=== PATIENT | female | born 1945 | race Caucasian/White ===

== ENCOUNTER 2017-09-02 09:24 | Outpatient (CLI) | payer MEDICARE, BC ==
--- NOTE | 2017-09-02 11:13 | RAD ---
CHEST TWO VIEWS: History: Pre op Comparison: 2015 FINDINGS: Evaluation of the right hemithorax is limited due to calcified breast implant. There is lung hyperinf lation. On the lateral radiograph there appears to be increased density in the lower lobes although t his is likely sequellae of normal pulmonary vasculature and relative pruning of the vasculature in th e upper lobes due to the severe emphysema. Right axillary surgical clips. IMPRESSION: Similar examination of the chest. No acute intrathoracic abnormality. No evidence for pneumonia. Find ings are similar to the 2015 examination. POS: [facility]
[2017-09-02 12:08] LABS: #Basophils 0.1 thou/uL (0.0-0.2); #Eosinphils 0.2 thou/uL (0.0-0.7); #Lymphocytes 1.6 thou/uL (1.20-3.40); #Monocytes 0.8 thou/uL (0.11-0.59); #Neutrophils 5.3 thou/uL (1.40-6.50); %Basophils 0.7 % (0.0-1.0); %Eosinophils 2.4 % (0.0-10.0); %Lymphocytes 20.5 % (21.0-51.0); %Monocytes 9.9 % (0.0-10.0); %Neutrophils 66.6 % (42.0-75.0); Hemoglobin 12.5 g/dL (12.0-16.0); Mean Corpuscular HGB CONC 32.7 g/dL (32.0-36.0); Mean Corpuscular Volume 97.9 fl (81.0-99.0); Mean Platelet Volume 6.9 fL (7.4-10.4); Platelet Count 335 thou/uL (130-400); RBC Distribution Width 12.5 % (11.5-14.5); Red Blood Cell (RBC) Count 3.91 mill/uL (4.20-5.40)
[2017-09-02 12:23] LABS: Anion Gap 13 mmol/L (10-20); BUN (Urea Nitrogen) 17 mg/dL (9.8-20.1); Calc. Creatinine Clearance 0 mL/min (70-130); Calcium 9.6 mg/dL (7.8-10.44); Carbon Dioxide 28 mmol/L (23-31); Chloride 99 mmol/L (98-107); Estimated GFR-MDRD 74; Glucose 82 mg/dL (83-110); Potassium 3.9 mmol/L (3.5-5.1); Sodium 136 mmol/L (136-145)
--- NOTE | 2017-09-10 19:32 | EKG ---
Test Reason : Blood Pressure : / mmHG Vent. Rate : 075 BPM Atrial Rate : 075 BPM P-R Int : 124 ms QRS Dur : 078 ms QT Int : 406 ms P-R-T Axes : 057 -40 055 degrees QTc Int : 453 ms Normal sinus rhythm Possible Left atrial enlargement Left axis deviation Abnormal ECG When compared with ECG of 29-JAN-2017 13:09, No significant change was found Confirmed by JENNIFER SUMNER (2) on 09/10/2017 7:31:52 PM Referred By: ARTURO Confirmed By:JENNIFER SUMNER
== END 2017-09-02 09:25 | disposition home or self-care (01) ==
LOC: LABBT 09:24
PROVIDERS: ATTEND Specialist
DX: Z01.818 Encounter for other preprocedural examination (principal); K41.00 Bilateral femoral hernia, with obstruction, without gangrene, not specified as recurrent; Z85.038 Personal history of other malignant neoplasm of large intestine
CPT/HCPCS: 71046; 80048; 85025; 93005; 93010

== ENCOUNTER 2017-09-08 07:37 | Day surgery (SDC) | payer MEDICARE, BC ==
[2017-09-02 09:52] VITALS: BMI 17.2
[2017-09-08] MEDS ORDERED: Ketorolac Tromethamine 30 MG/ML VIAL ONE ×2 (08:20→15:02)
[2017-09-08] MEDS ORDERED: Lidocaine 2% PF 5 ML VIAL ONE ×2 (09:32→09:34)
[2017-09-08] MEDS ORDERED: Bupivacaine/Epinephrine 0.25% 30 ML VIAL ONE (09:32)
[2017-09-08] MEDS ORDERED: Fentanyl 100 MCG/2 ML VIAL ONE (10:31)
[2017-09-08] MEDS ORDERED: Midazolam HCl 2 mg/2 ml Vial ONE (10:31)
[2017-09-08] MEDS ORDERED: CEFAZOLIN/Water 2 GM/20 ML SYRINGE ONE (10:41)
[2017-09-08] MEDS ORDERED: Ondansetron HCl/PF 4 MG/2 ML Vial ONE (15:02)
[2017-09-08] MEDS ORDERED: Lidocaine 1% PF 5 ML VIAL ONE (15:02)
[2017-09-08] MEDS ORDERED: PHENYLEPHRINE-NS 100 MCG/ML 10 ML SYRINGE ONE (15:02)
[2017-09-08] MEDS ORDERED: Propofol 200 MG/20 ML VIAL ONE (15:02)
--- NOTE | 2017-09-09 11:25 | OP ---
DATE OF PROCEDURE: 09/08/2017 PREOPERATIVE DIAGNOSIS: Recurrent right femoral hernia, new left femoral hernia. POSTOPERATIVE DIAGNOSIS: Recurrent right femoral hernia, new left femoral hernia. OPERATION PERFORMED: Repair of bilateral femoral hernias (recurrent on the right) with perfect mesh plug. SURGEON: Fahad Obando M.D. ANESTHESIA: General with laryngeal mask airway. INDICATIONS: The patient is a 72-year-old white female. She has undergone previous right femoral he rnia repair with mesh. She presents at this time with obvious recurrence. She additionally has smal ler, but visible and palpable femoral hernia on the left. DESCRIPTION OF OPERATION: Informed consent was obtained. The patient taken to the operating room wh ere general anesthesia was obtained with the patient in supine position. Bilateral inguinal areas wa s trimmed of hair, prepped with ChloraPrep, and draped in sterile fashion. Local anesthetic was infi ltrated in the areas that were marked preoperatively. Operation was performed first on the right. I ncision was created over the hernia. Dissection was carried through skin and subcutaneous tissue. T he hernia was quickly identified and dissected back to its opening at the femoral canal. With carefu l dissection, I was able to identify the shelving edge of the inguinal ligament on the anterior aspec t of the Ender's ligament on the posterior aspect and then the mesh was in this area as well. The l acunar ligament was identified medially and laterally easily visible femoral vein. After full dissection, the contents were easily able to be reduced. The apex of the hernia sac secur ed to the apex of a medium PerFix mesh patch and the complex was inverted into the preperitoneal spac e. The mesh was secured to surrounding structures within an anterior, posterior, medial suture of 2- 0 Vicryl. On the lateral aspect, an imbricating suture was placed incorporating to the shelving edge of the inguinal ligament, the lateral aspect of the mesh plug, and Ender's ligament posteriorly. T his closed off the size of the canal and incorporated the mesh in this area as well. Hemostasis was meticulous. Additional local anesthetic was infiltrated. The wound was closed in lay ers with 3-0 and 4-0 Monocryl suture. Dermabond was placed externally. Attention was turned to the left side. An incision was created in a similar location after local ane sthetic was infiltrated. Dissection was carried through skin and subcutaneous tissue. The initial c omplex of tissue that was identified appeared to have likely been lymphatics that retract lateral to the typical femoral canal. Since these have been dissected, ligated these proximally and passed thes e off the field. There was nothing pathologic about it and it was decided and submitted as a specime n. I then, in the medial aspect, identified the hernia sac. This was also dissected carefully back to its opening at the femoral canal. With meticulous dissection, I was again able to identify the an atomic boundaries of the femoral canal and the contents were easily able to be reduced in the preperi toneal space. A medium PerFix plug was obtained and secured to the apex of the hernia contents. The complex was re duced and the plug was secured in place with 4 interrupted sutures of 2-0 Vicryl as it had been on e right. Additional local anesthetic was infiltrated. The wound was closed using 3-0 and 4-0 Monocr yl and Dermabond was placed externally. There were no complications. The patient tolerated the proc edure well and was taken to recovery in stable condition.
== END 2017-09-08 14:20 | disposition home or self-care (01) ==
LOC: SDC 07:37
PROVIDERS: ATTEND Specialist
PROC: 0YU70JZ Supplement Right Femoral Region with Synthetic Substitute, Open Approach (ICD-10-PCS; principal; 2017-09-08)
PROC: 0YU80JZ Supplement Left Femoral Region with Synthetic Substitute, Open Approach (ICD-10-PCS; 2017-09-08)
DX: K41.91 Unilateral femoral hernia, without obstruction or gangrene, recurrent (principal); K41.90 Unilateral femoral hernia, without obstruction or gangrene, not specified as recurrent; Z88.2 Allergy status to sulfonamides; Z88.8 Allergy status to other drugs, medicaments and biological substances; Z88.1 Allergy status to other antibiotic agents; Z90.49 Acquired absence of other specified parts of digestive tract; Z90.11 Acquired absence of right breast and nipple; Z98.890 Other specified postprocedural states
CPT/HCPCS: C1781; J0131; J1885; J2001; J2250; J2405; J2704; J3010

== ENCOUNTER 2018-02-15 20:53 | Emergency (ER) | payer MEDICARE, BC, OTHER ==
[~2018-02-15 20:53] MED LIST: ISOVUE-370 76%-LOCM 1 ML ONE
[2018-02-15 21:34] LABS: #Basophils 0.1 thou/uL (0.0-0.2); #Eosinphils 0.1 thou/uL (0.0-0.7); #Lymphocytes 1.5 thou/uL (1.20-3.40); #Monocytes 0.9 thou/uL (0.11-0.59); #Neutrophils 9.1 thou/uL (1.40-6.50); %Basophils 0.7 % (0.0-1.0); %Eosinophils 1.2 % (0.0-10.0); %Lymphocytes 12.9 % (21.0-51.0); %Monocytes 7.7 % (0.0-10.0); %Neutrophils 77.5 % (42.0-75.0); Hemoglobin 11.6 g/dL (12.0-16.0); Mean Corpuscular HGB CONC 33.9 g/dL (32.0-36.0); Mean Corpuscular Hemoglobin 31.4 pg (27.0-31.0); Mean Corpuscular Volume 92.5 fl (81.0-99.0); Mean Platelet Volume 6.2 fL (7.4-10.4); Platelet Count 305 thou/uL (130-400); RBC Distribution Width 12.3 % (11.5-14.5); Red Blood Cell (RBC) Count 3.69 mill/uL (4.20-5.40); White Blood Cell (WBC) Count 11.7 thou/uL (4.8-10.8)
[2018-02-15 21:43] LABS: INR-International Normal Ratio 1.1; PTT 29.7 SEC (22.9-36.1); Prothrombin Time 14.2 SEC (12.0-14.7)
[2018-02-15 21:44] LABS: D-Dimer Test 1.08 *mcg/mL (0.27-0.43)
[2018-02-15 21:56] LABS: ALT (SGPT) 12 U/L (8-55); AST (SGOT) 17 U/L (5-34); Albumin 3.6 g/dL (3.4-4.8); Alkaline Phosphatase 85 U/L (40-150); Anion Gap 15 mmol/L (10-20); BUN (Urea Nitrogen) 25 mg/dL (9.8-20.1); Bilirubin, Total 0.4 mg/dL (0.2-1.2); Calc. Creatinine Clearance 0 mL/min (70-130); Calcium 9.3 mg/dL (7.8-10.44); Carbon Dioxide 24 mmol/L (23-31); Chloride 98 mmol/L (98-107); Estimated GFR-MDRD 68; Globulin 3.7 g/dL (2.4-3.5); Glucose 140 mg/dL (83-110); Lipase 14 U/L (8-78); Magnesium 1.8 mg/dL (1.6-2.6); Potassium 3.6 mmol/L (3.5-5.1); Protein, Total 7.3 g/dL (6.0-8.3); Sodium 133 mmol/L (136-145)
[2018-02-15 22:01] LABS: CKMB 1.4 ng/mL (0-6.6); Troponin I Less than 0.010 ng/mL (< 0.028)
--- NOTE | 2018-02-15 22:14 | RAD ---
RADIOGRAPH CHEST 1 VIEW: Date: 02/15/2018 Time: 9:28 p.m. HISTORY: A 72-year-old female with chest pain and hemoptysis. COMPARISON: Two view study of 01/04/2018. FINDINGS: Again noted is the hyperinflation, consistent with COPD. No cardiomegaly. Partial calcification of a right breast implant makes it difficult to assess the right mid and lower lung zones. Prominent in terstitial markings bilaterally are probably chronic. The irregular, branching pulmonary densities a t the left lung base appear worse on the current study compared to the previous. Multiple surgical c lips at the right axilla. No consolidation or pneumothorax. IMPRESSION: 1. Questionable left basilar infiltrate. 2. Status post right mastectomy and right axillary lymph node dissection. 3. Emphysema. KRISHAN [] POS: [facility]
[2018-02-15 22:38] LABS: Bilirubin Negative (Negative); Blood, Urine Small (Negative); Clarity CLEAR (Clear); Glucose, Urine (Dipstick) Negative (Negative); Leukocyte Small (Negative); Nitrite Positive (Negative); Protein, Urine (Dipstick) Negative (Neg-Trace)
[2018-02-15 22:39] LABS: Bacteria/HPF 4+ HPF (None Seen); Hyaline Casts/LPF 0-3 HYALINE CAST LPF (0-3 Hyaline); RBC/HPF 0-3 HPF (0-3); Squamous Epithelial 0-3 HPF (0-3)
--- NOTE | 2018-02-15 23:43 | CT ---
CTA THORAX WITH CONTRAST: (Computed Tomographic Angiography, chest(noncoronary) with contrast material, and image post processi ng) (PE protocol) DATE: 02/15/2018 TIME: 10:12 p.m. HISTORY: A 72-year-old female with hemoptysis and dyspnea. TECHNIQUE: IV injection of iodinated contrast: Isovue. Scan acquisition timing attempted to coincide with iodinated contrast bolus reaching maximal density in pulmonary arteries. 3D MIP reconstructions. FINDINGS: No pulmonary thromboembolism is identified. No thoracic aortic aneurysm or dissection. There is per ibronchial thickening involving all the branches of the left lower lobe bronchus. More peripherally, this is associated with bronchiectasis of the peripheral branches of the left lower lobe bronchus, a nd some of these peripheral branches, especially in the posterior basilar segment and the medial and lateral basilar segments, have occluded lumens, filled with soft tissue density. There is extensive, moderate tree-in-bud nodularity of the bilateral lower lobe pulmonary parenchyma. There is bronchie ctasis associated with peribronchial thickening and pulmonary scar, involving the anterior segment of the right upper lobe, contiguous with pleural thickening involving the anterolateral pleura. There is also biapical pleural thickening. No cardiomegaly, pleural effusion, or pericardial effusion. Bi lateral breast implants with calcified rims, especially the right. Trachea and right and left mainst em bronchi are patent and clear. Nonspecific mildly enlarged mediastinal and hilar lymph nodes bilat erally. Emphysematous changes of the lungs bilaterally. IMPRESSION: 1. No evidence of pulmonary thromboembolism. 2. Occlusion (mucoid impaction) of many of the left lower lobe bronchus branches, plus expansion and bronchiectasis. One possible etiology is allergic bronchopulmonary aspergillosis (ABPA). 3. Tree-in-bud pattern throughout the basilar segments of the bilateral lower lobes. This is nonspe cific, but one possibility is peribronchiolar pulmonary infection, including indolent infections, suc h as with atypical mycobacteria. 4. Prominent pulmonary and adjacent pleural scarring involving the anterior segment of the right upp er lobe. 5. Emphysema. paige[] POS: [facility]
== END 2018-02-16 01:08 | disposition home or self-care (01) ==
LOC: ERS 20:53
DX: J47.9 Bronchiectasis, uncomplicated (principal); J42 Unspecified chronic bronchitis; N39.0 Urinary tract infection, site not specified; Z85.038 Personal history of other malignant neoplasm of large intestine; Z85.3 Personal history of malignant neoplasm of breast
CPT/HCPCS: 36415; 71045; 71275; 80053; 81003; 81015; 82553; 83605; 83690; 83735; 83880; 84443; 84484; 85025; 85379; 85610; 85730; 86850; 86900; 86901

== ENCOUNTER 2018-02-16 10:17 | Emergency (ER) | payer MEDICARE, BC, OTHER | END 2018-02-16 11:19 | disposition home or self-care (01) | LOC: ERS 10:17 | DX: S50.12XA Contusion of left forearm, initial encounter (principal); X58.XXXA Exposure to other specified factors, initial encounter | CPT/HCPCS: 99283 ==

== ENCOUNTER 2018-04-30 12:20 | Outpatient (CLI) | payer MEDICARE, BC, OTHER ==
--- NOTE | 2018-04-30 15:52 | MRI ---
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 COMPARISON: CT brain 05/11/17. FINDINGS: There is no significant increase in the size of the left subdural hematoma. There is less than 3 mm m idline shift, decreased from 4 mm on the prior examination. On the diffusion weighted images there are no abnormal areas of diffusion restriction to suggest an a cute infarction. Mild atrophy. Mild chronic microangiopathic changes. No abnormal enhancing mass. Chronic left dural enhancement is present likely from irritation of the s ubdural hematoma. IMPRESSION: 1. No significant change in the chronic left subdural hematoma. 2. No acute intracranial abnormality. POS: [facility]
== END 2018-04-30 12:21 | disposition home or self-care (01) ==
LOC: SCSMRI 12:20
PROVIDERS: ATTEND Family Medicine
DX: I62.03 Nontraumatic chronic subdural hemorrhage (principal)
CPT/HCPCS: 70553

== ENCOUNTER 2018-06-01 14:46 | Outpatient (CLI) | payer MEDICARE, BC, OTHER ==
--- NOTE | 2018-06-01 17:26 | RAD ---
TWO VIEWS CHEST 06/01/18 COMPARISON: 01/30/16, 02/15/18. HISTORY: Dyspnea. Enlarged cardiac silhouette. Lungs are hyperinflated. Chronic changes of the lung parenchyma. Multipl e punctate densities project over the left and right hemithorax likely due to patient's shirt. Chroni c lung parenchymal changes are identified. There is stable hyperinflation. There is no significant pn eumothorax or pleural effusion. There is stable bilateral apical pleural thickening. Stable right mas tectomy and right axillary dissection changes. IMPRESSION: Stable emphysema and fibrotic changes. POS: [facility]
== END 2018-06-01 14:47 | disposition home or self-care (01) ==
LOC: RAD 14:46
PROVIDERS: ATTEND Internal Medicine Pulmonary Disease
DX: R06.00 Dyspnea, unspecified (principal); J43.9 Emphysema, unspecified
CPT/HCPCS: 71046

== ENCOUNTER 2018-06-01 19:30 | Outpatient (CLI) | payer MEDICARE, BC, OTHER | END 2018-06-01 19:31 | disposition home or self-care (01) | LOC: SLEEPLAB 19:30 | PROVIDERS: ATTEND Internal Medicine Pulmonary Disease | DX: G47.33 Obstructive sleep apnea (adult) (pediatric) (principal) | CPT/HCPCS: 95811 ==

== ENCOUNTER 2018-06-25 08:40 | Outpatient (CLI) | payer MEDICARE, BC, OTHER ==
[2018-06-25] MEDS ORDERED: Iopamidol 370 76% 100 ML VIAL ONE (09:00)
--- NOTE | 2018-06-25 15:29 | CT ---
CT ABDOMEN AND PELVIS WITH CONTRAST: 06/25/18 COMPARISON: 01/09/17 HISTORY: Colon cancer history. Weight loss and inability to gain weight. TECHNIQUE: Multiple contiguous axial images were obtained in a CT of the abdomen and pelvis with contrast. PO co ntrast is administered. Coronal reformats were performed. FINDINGS: The liver, gallbladder, right kidney, adrenal glands, spleen, and pancreas are unremarkable. There is a 1.0 cm hypodensity in the left kidney which likely represents a cyst. The large and small bowel are unremarkable. No free air, free fluid, or stranding changes are seen in the abdomen or pelvis. No abdominal or pelvic lymphadenopathy are appreciated. Patient is status post hysterectomy. Degenerative changes are seen in the spine. No suspicious osseous lesion identified. The patient has a calcified right breast implant. IMPRESSION: 1. No evidence of acute intra-abdominal/pelvic abnormality. 2. Left renal cyst. POS: [facility]
== END 2018-06-25 08:41 | disposition home or self-care (01) ==
LOC: SCSCT 08:40
PROVIDERS: ATTEND Internal Medicine Gastroenterology
DX: R63.4 Abnormal weight loss (principal); R68.81 Early satiety; R63.0 Anorexia; N28.1 Cyst of kidney, acquired
CPT/HCPCS: 74177; 82565

== ENCOUNTER 2019-07-19 13:48 | Outpatient (CLI) | payer MEDICARE, BC, OTHER ==
--- NOTE | 2019-07-19 14:19 | ULT ---
Ultrasound right neck: DATE: 07/19/2019 HISTORY: 74-year-old female with palpable lump in right neck. FINDINGS: Focused ultrasound of the palpable lump demonstrates a round, well-circumscribed, 0.4 x 0.3 x 0.4 cm hypoechoic mass. There is a central tiny focus of blood flow, indicating that this is not a cyst. IMPRESSION: The palpable lump corresponds to a tiny round hypoechoic nodule probably representing a lymph node. I t is abnormally round in shape, but is otherwise nonspecific.
== END 2019-07-19 13:49 | disposition home or self-care (01) ==
LOC: SCSULT 13:48
PROVIDERS: ATTEND Family Medicine
DX: R22.1 Localized swelling, mass and lump, neck (principal)
CPT/HCPCS: 76536

== ENCOUNTER 2019-11-15 09:09 | Outpatient (CLI) | payer MEDICARE, BC, OTHER ==
--- NOTE | 2019-11-15 09:44 | BD ---
BONE DENSITOMETRY USING DEXA: HISTORY: Osteoporosis. FINDINGS: Lumbar Spine: BMD (g/cm2) L1 0.610 T-Score: -3.5 Z-Score: -1.3 L2 0.748 T-Score: -2.5 Z-Score: -0.2 L3 0.646 T-Score: -4.0 Z-Score: -1.5 L4 0.590 T-Score: -4.3 Z-Score: -1.7 L1-L4 0.640 T-Score: -3.7 Z-Score: -1.3 Femoral Neck: 0.544 T-Score: -2.8 Z-Score: -0.7 Total Femur: 0.651 T-Score: -2.4 Z-Score: -0.6 There has been interval reduction of 9.5% in the BMD of the lumbar spine and a reduction of 11.1% in the BMD of the proximal femur since 02/06/2016. Impression: Osteoporosis. POS: [facility]
== END 2019-11-15 09:10 | disposition home or self-care (01) ==
LOC: BICMAMMO 09:09
PROVIDERS: ATTEND Family Medicine
DX: M81.0 Age-related osteoporosis without current pathological fracture (principal)
CPT/HCPCS: 77080

== ENCOUNTER 2021-02-03 01:41 | Inpatient (IN) | payer OTHER, MEDICARE, BC ==
[2021-02-03 02:33] LABS: #Basophils 0.1 thou/uL (0.0-0.2); #Eosinphils 0.2 thou/uL (0.0-0.7); #Lymphocytes 1.4 thou/uL (1.20-3.40); #Monocytes 0.6 thou/uL (0.11-0.59); #Neutrophils 6.5 thou/uL (1.40-6.50); %Basophils 0.8 % (0.0-1.0); %Eosinophils 1.9 % (0.0-10.0); %Lymphocytes 16.1 % (21.0-51.0); %Monocytes 7.2 % (0.0-10.0); Hemoglobin 11.4 g/dL (12.0-16.0); Mean Corpuscular HGB CONC 34.4 g/dL (32.0-36.0); Mean Corpuscular Hemoglobin 31.9 pg (27.0-31.0); Mean Corpuscular Volume 92.6 fL (78.0-98.0); Mean Platelet Volume 7.2 fL (7.4-10.4); Platelet Count 288 thou/uL (130-400); RBC Distribution Width 12.5 % (11.5-14.5); Red Blood Cell (RBC) Count 3.56 mill/uL (4.20-5.40); White Blood Cell (WBC) Count 8.8 thou/uL (4.8-10.8)
[2021-02-03 02:47] LABS: PTT 29.2 sec (22.9-36.1); Prothrombin Time 13.3 sec (12.0-14.7)
[2021-02-03 02:54] LABS: ALT (SGPT) 13 U/L (8-55); AST (SGOT) 18 U/L (5-34); Albumin 3.4 g/dL (3.4-4.8); Alkaline Phosphatase 88 U/L (40-110); Anion Gap 14 mmol/L (10-20); BUN (Urea Nitrogen) 19 mg/dL (9.8-20.1); Bilirubin, Total 0.3 mg/dL (0.2-1.2); Calc. Creatinine Clearance 0 mL/min (70-130); Calcium 9.1 mg/dL (7.8-10.44); Carbon Dioxide 24 mmol/L (23-31); Chloride 101 mmol/L (98-107); Globulin 3.6 g/dL (2.4-3.5); Glucose 107 mg/dL (83-110); Potassium 3.7 mmol/L (3.5-5.1); Sodium 135 mmol/L (136-145)
[2021-02-03] MEDS ORDERED: Dextrose 5% in Water 1,000 ML IV PRN (03:56)
[2021-02-03] MEDS ORDERED: Dextrose 50% Abboject 50 ML SYRINGE SLOW IVP PRN (03:56)
[2021-02-03] MEDS: Acetaminophen 325 MG TAB PO SCH ×4 (06:04→20:57)
[2021-02-03] MEDS: Ibuprofen 200 MG TAB PO SCH ×3 (06:04→20:58)
[2021-02-03] MEDS: traMADol HCl 50 MG TAB PO SCH ×4 (06:05→22:43)
[2021-02-03 06:21] LABS: SARS-CoV-2 NAA Rapid Test Not Detected (NotDetected)
[2021-02-03] MEDS ORDERED: CEFAZOLIN 2 GM in Premix Bag 1 BAG IVPB SCH (07:15)
[2021-02-03 07:37] VITALS: BMI 18.2
[2021-02-03] MEDS: Famotidine 20 MG TAB PO SCH ×2 (09:07→20:58)
[2021-02-03] MEDS ORDERED: Fentanyl 100 MCG/2 ML VIAL ONE ×2 (10:11→13:07)
[2021-02-03] MEDS ORDERED: Famotidine/PF 20 mg/2ml Vial ONE (10:11)
[2021-02-03] MEDS ORDERED: PROPOFOL 200 MG/20 ML VIAL ONE (10:52)
[2021-02-03] MEDS ORDERED: PHENYLEPHRINE-NS 100 MCG/ML 10 ML SYRINGE ONE (10:52)
[2021-02-03] MEDS ORDERED: Lidocaine 1% PF 5 ML VIAL ONE (10:52)
[2021-02-03] MEDS ORDERED: Ondansetron PF 4 MG/2 ML Vial ONE (10:52)
[2021-02-03] MEDS ORDERED: Rocuronium Bromide 10 MG/ML (10ML VIAL) ONE (10:52)
[2021-02-03] MEDS ORDERED: ePHEDrine Sulfate 50 MG/10 ML VIAL ONE ×2 (10:52→11:40)
[2021-02-03] MEDS ORDERED: SUGAMMADEX SODIUM 200 MG/2 ML VIAL ONE (11:23)
[2021-02-03] MEDS ORDERED: Promethazine HCl 25 MG/ML VIAL SLOW IVP PRN (12:15)
[2021-02-03] MEDS ORDERED: Promethazine HCl 25 MG/ML VIAL IM PRN (12:15)
[2021-02-03] MEDS ORDERED: Ondansetron HCl/PF 4 MG/2 ML Vial IVP PRN (12:15)
[2021-02-03] MEDS: Mometasone 200 MCG/Formoterol 5 MCG 120 PUFF INHALER INH SCH ×2 (13:42→18:42)
[2021-02-03] MEDS: CEFAZOLIN 2 GM in Premix Bag 1 BAG IVPB SCH (17:47)
[2021-02-03] MEDS: Aspirin 81 mg Enteric Coated Tablet PO SCH (20:59)
[2021-02-03] MEDS: Trihexyphenidyl 2 MG TAB PO SCH (20:59)
[2021-02-03] MEDS: traMADol HCl 50 MG TAB PO PRN (22:42)
[2021-02-04] MEDS: CEFAZOLIN 2 GM in Premix Bag 1 BAG IVPB SCH ×2 (02:07→10:19)
[2021-02-04] MEDS: traMADol HCl 50 MG TAB PO SCH ×4 (03:57→21:59)
[2021-02-04] MEDS: Ibuprofen 200 MG TAB PO SCH (03:58)
[2021-02-04] MEDS: traMADol HCl 50 MG TAB PO PRN (03:58)
[2021-02-04] MEDS: Acetaminophen 325 MG TAB PO SCH ×2 (04:35→10:19)
[2021-02-04 05:38] LABS: #Basophils 0.1 thou/uL (0.0-0.2); #Eosinphils 0.3 thou/uL (0.0-0.7); #Lymphocytes 1.1 thou/uL (1.20-3.40); #Monocytes 0.9 thou/uL (0.11-0.59); #Neutrophils 9.9 thou/uL (1.40-6.50); %Basophils 0.7 % (0.0-1.0); %Eosinophils 2.1 % (0.0-10.0); %Monocytes 7.1 % (0.0-10.0); %Neutrophils 81.1 % (42.0-75.0); Hemoglobin 10.5 g/dL (12.0-16.0); Mean Corpuscular HGB CONC 33.7 g/dL (32.0-36.0); Mean Corpuscular Hemoglobin 31.8 pg (27.0-31.0); Mean Corpuscular Volume 94.3 fL (78.0-98.0); Mean Platelet Volume 7.7 fL (7.4-10.4); Platelet Count 271 thou/uL (130-400); RBC Distribution Width 12.6 % (11.5-14.5); Red Blood Cell (RBC) Count 3.32 mill/uL (4.20-5.40); White Blood Cell (WBC) Count 12.3 thou/uL (4.8-10.8)
[2021-02-04 06:02] LABS: Anion Gap 10 mmol/L (10-20); BUN (Urea Nitrogen) 19 mg/dL (9.8-20.1); Calc. Creatinine Clearance 44 mL/min (70-130); Calcium 8.4 mg/dL (7.8-10.44); Carbon Dioxide 29 mmol/L (23-31); Chloride 97 mmol/L (98-107); Glucose 130 mg/dL (83-110); Magnesium 1.7 mg/dL (1.6-2.6); Phosphorus 3.1 mg/dL (2.3-4.7); Potassium 4.1 mmol/L (3.5-5.1); Sodium 132 mmol/L (136-145)
[2021-02-04] MEDS: Mometasone 200 MCG/Formoterol 5 MCG 120 PUFF INHALER INH SCH ×2 (07:48→18:35)
[2021-02-04] MEDS: Senokot S 8.6-50 MG TAB PO SCH ×2 (08:47→21:13)
[2021-02-04] MEDS: Trihexyphenidyl 2 MG TAB PO SCH ×3 (08:47→21:15)
[2021-02-04] MEDS: Aspirin 81 mg Enteric Coated Tablet PO SCH ×2 (08:47→21:14)
[2021-02-04] MEDS: Famotidine 20 MG TAB PO SCH (08:47)
[2021-02-04] MEDS: guaiFENesin ER 600 MG TAB PO SCH (08:49)
[2021-02-04] MEDS: Ondansetron PF 4 MG/2 ML Vial IVP PRN ×2 (08:53→15:19)
[2021-02-04] MEDS ORDERED: Gabapentin 100 MG CAP PO SCH (12:00)
[2021-02-04] MEDS ORDERED: Magnesium Sulfate 3 GM in Sodium Chloride 0.9% 100 ML IV SCH (14:30)
[2021-02-04] MEDS ORDERED: Magnesium 2 GM/50 ML 2 GM in Premix Bag 1 BAG IVPB SCH (14:45)
[2021-02-04] MEDS ORDERED: Gabapentin 300 MG CAP PO SCH (15:00)
[2021-02-04] MEDS: Gabapentin 100 MG CAP PO SCH ×2 (15:44→21:14)
[2021-02-04] MEDS: Acetaminophen 500 MG TAB PO SCH ×2 (15:45→21:14)
[2021-02-04] MEDS: Ferrous Sulfate 325 MG TAB PO SCH (17:11)
[2021-02-04] MEDS: Ascorbic Acid 500 mg Chewable Tablet PO SCH (21:13)
[2021-02-05] MEDS: Senokot S 8.6-50 MG TAB PO SCH ×3 (00:31→08:44)
[2021-02-05 04:00] VITALS: TEMP 98.2
[2021-02-05] MEDS: Acetaminophen 500 MG TAB PO SCH ×2 (04:38→10:49)
[2021-02-05] MEDS: traMADol HCl 50 MG TAB PO SCH ×2 (04:39→09:56)
[2021-02-05] MEDS: Mometasone 200 MCG/Formoterol 5 MCG 120 PUFF INHALER INH SCH (08:12)
[2021-02-05] MEDS: guaiFENesin ER 600 MG TAB PO SCH (08:42)
[2021-02-05] MEDS: Trihexyphenidyl 2 MG TAB PO SCH (08:43)
[2021-02-05] MEDS: Ferrous Sulfate 325 MG TAB PO SCH (08:43)
[2021-02-05] MEDS: Gabapentin 100 MG CAP PO SCH (08:43)
[2021-02-05] MEDS: Ascorbic Acid 500 mg Chewable Tablet PO SCH (08:43)
[2021-02-05] MEDS: Aspirin 81 mg Enteric Coated Tablet PO SCH (08:43)
[2021-02-05] MEDS ORDERED: Polyethylene Glycol 3350 17 GM Packet PO SCH (09:00)
[2021-02-05] MEDS ORDERED: Acetaminophen/Codeine 30-300mg Tablet PO PRN (09:37)
[2021-02-05 11:35] VITALS: BP 111/61
== END 2021-02-05 14:10 | DRG 522 ==
LOC: ERS 01:41 → SURG B 02:37
PROVIDERS: ADMIT Surgery; ATTEND Surgery
PROC: 0SRR0JA Replacement of Right Hip Joint, Femoral Surface with Synthetic Substitute, Uncemented, Open Approach (ICD-10-PCS; principal; 2021-02-03)
DX: S72.001A Fracture of unspecified part of neck of right femur, initial encounter for closed fracture (principal); W01.0XXA Fall on same level from slipping, tripping and stumbling without subsequent striking against object, initial encounter; Z20.822 Contact with and (suspected) exposure to COVID-19; G24.3 Spasmodic torticollis; G47.33 Obstructive sleep apnea (adult) (pediatric); J44.9 Chronic obstructive pulmonary disease, unspecified; Z88.2 Allergy status to sulfonamides; Z88.8 Allergy status to other drugs, medicaments and biological substances; Z79.51 Long term (current) use of inhaled steroids; Z90.49 Acquired absence of other specified parts of digestive tract; Z90.710 Acquired absence of both cervix and uterus; Z85.3 Personal history of malignant neoplasm of breast; Z85.038 Personal history of other malignant neoplasm of large intestine
CPT/HCPCS: 36415; 36416; 71045; 72170; 80048; 80053; 82533; 83735; 84100; 85025; 85610; 85730; 93005; C1776; J0690; J2405; J2704; J3010; J3475; S0028; U0002; U0005

== ENCOUNTER 2021-04-16 14:04 | Outpatient (CLI) | payer MEDICARE, OTHER | END 2021-04-16 14:05 | disposition home or self-care (01) | LOC: BICMAMMO 14:04 | PROVIDERS: ATTEND Family Medicine | DX: M81.0 Age-related osteoporosis without current pathological fracture (principal) | CPT/HCPCS: 77080 ==

== ENCOUNTER 2021-12-27 10:19 | Outpatient (CLI) | payer MEDICARE, OTHER | END 2021-12-27 10:20 | disposition home or self-care (01) | LOC: TBSIIMAG 10:19 | PROVIDERS: ATTEND Surgery | DX: M47.26 Other spondylosis with radiculopathy, lumbar region (principal); M51.16 Intervertebral disc disorders with radiculopathy, lumbar region; M41.9 Scoliosis, unspecified | CPT/HCPCS: 72100; 72148 ==

== ENCOUNTER 2022-07-09 13:23 | Outpatient (CLI) | payer MEDICARE, OTHER | END 2022-07-09 13:24 | disposition home or self-care (01) | LOC: RAD 13:23 | PROVIDERS: ATTEND Internal Medicine Critical Care Medicine | DX: R06.00 Dyspnea, unspecified (principal); R91.8 Other nonspecific abnormal finding of lung field | CPT/HCPCS: 71046 ==

== ENCOUNTER 2022-09-05 11:30 | Outpatient (CLI) | payer MEDICARE, OTHER | END 2022-09-05 11:31 | disposition home or self-care (01) | LOC: SCSMRI 11:30 | PROVIDERS: ATTEND Psychiatry & Neurology Neurology | DX: M79.18 Myalgia, other site (principal); G62.9 Polyneuropathy, unspecified; G57.01 Lesion of sciatic nerve, right lower limb; Z96.641 Presence of right artificial hip joint | CPT/HCPCS: 82565 ==